=== PATIENT | male | born 1975 | race Caucasian/White ===

== ENCOUNTER 2025-06-21 17:46 | Emergency (ER) | payer OTHER ==
[~2025-06-21] VITALS: Ht 193 cm; Wt 106.6 kg
[2025-06-21] MEDS ORDERED: Acetaminophen/Oxycodone 5 MG/325 MG TABLET PO ONE (17:55)
[2025-06-21] MEDS ORDERED: CEPHALEXIN500 M1 PO (17:56)
[2025-06-21] MEDS ORDERED: Tdap Vaccine 0.5 ML SYR (Adult Vaccine) IM ONE (18:45)
== END 2025-06-21 18:54 | disposition home or self-care (01) ==
LOC: ED 17:46
DX: S01.01XA Laceration without foreign body of scalp, initial encounter (principal); W19.XXXA Unspecified fall, initial encounter; Y93.89 Activity, other specified; Y92.89 Other specified places as the place of occurrence of the external cause; Y99.8 Other external cause status